=== PATIENT | female | born 1970 | race Asian ===

== ENCOUNTER 2020-03-09 09:25 | Outpatient (CLI) | payer BC ==
[~2020-03-09 09:25] MED LIST: Iopamidol-370 76% 500 ML 1 ML ONE
--- NOTE | 2020-03-09 10:50 | CT ---
CT neck soft tissues with contrast: 03/09/2020 HISTORY: 49-year-old female with "R 22.1, neck mass" FINDINGS: There is an approximately 2 x 1 x 1.5 cm moderately enhancing mass at the right nasopharyngeal mucosa l space, effacing the right fossa of Rosenmuller (lateral pharyngeal recess), and partially effacing the fat of the right parapharyngeal space. There is opacification of most of the right mastoid air cells. There is an approximately 2.7 x 1.8 x 1.6 cm solid, slightly heterogeneously enhancing tumor mass pos terior to the right mandibular angle, distorting the anterior superior portion of the right sternocleidomastoid muscle, and located to the right lateral aspect of the upper portion of the right internal jugular vein, which is extrinsically compressed and narrowed by this. It is located lateral to the right internal and external carotid arteries. This is probably a metastatic level 2A l ymph node. Located a short distance of approximately 1 cm posterior to this, there is a round 0.7 x 0.6 x 0.7 cm similarly enhancing nodule, probably metastatic level IIb lymph node. Slightly inferior and medial to the level 2A metastatic node, there is a 1.6 x 0.7 x 1.4 cm similarly enhancing irregularly-shaped mass consistent with another level 2A metastatic node. Caudal to this mass and cranial to this mass, no cervical lymphadenopathy is visualized. The thyroid gland, larynx, and trachea, demonstrate no definite pathology. The submandibular, parotid,, posterior cervical, and slip filler spaces, are unremarkable. 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 2) right mastoid effusion is evidence for occlusion of the right eustachian tube by the right nasopha ryngeal mass.
== END 2020-03-09 09:26 | disposition home or self-care (01) ==
LOC: BICCT 09:25
PROVIDERS: ATTEND Otolaryngology Plastic Surgery within the Head & Neck
DX: R22.1 Localized swelling, mass and lump, neck (principal); C11.9 Malignant neoplasm of nasopharynx, unspecified; C77.0 Secondary and unspecified malignant neoplasm of lymph nodes of head, face and neck; H74.8X1 Other specified disorders of right middle ear and mastoid; H68.101 Unspecified obstruction of Eustachian tube, right ear
CPT/HCPCS: 70491; Q9967

== ENCOUNTER 2020-03-23 13:31 | Outpatient (CLI) | payer BC ==
--- NOTE | 2020-03-23 14:29 | MRI ---
Exam: Brain MRI with and without contrast HISTORY: Posterior right oropharyngeal neoplasm. Evaluate for skull base. Patient has undergone tumor removal. COMPARISON: None Correlation: Postcontrast soft tissue neck CT 03/09/2020 FINDINGS: Gradient echo sequence: No hemorrhage Calvarium: Appropriate T1 marrow signal intensity Midline brain parenchyma: Unremarkable Cerebrum:No parenchymal mass, mass effect or midline shift. Brain volume is age-appropriate. Cortical amaya-white matter differentiation is preserved. No significant T2 or FLAIR white matter hyperintensities. Ventricles: No evidence of hydrocephalus. Sinuses and mastoid air cells: Mild mucosal thickening involving the bilateral ethmoid air cells and maxillary sinuses. There is asymmetric opacification of the right mastoid air cells. Diffusion: Central arterial flow is maintained. Absent restricted diffusion. Postcontrast images: No pathologic enhancement of the brain parenchyma. Additional findings: There appears be appropriate T1 marrow signal intensity involving the C1 and C2 vertebral bodies anteriorly. Visualized clivus has appropriate signal intensity. Postcontrast images do not demonstrate any abnormal signal intensity/enhancement of the anterior C1, C2 vertebral bodies or clivus. There is abnormal increased soft tissue signal intensity with enhancement involving the posterior right oral cavity/nasopharynx. There is narrowing of the right fossa of Foster burnham. There is appropriate signal intensity of the right longus coli muscle with respect of the contralateral side. There is grossly no abnormal enhancement involving the right glossopharyngeal ner ve. No abnormal signal intensity in the right glossopharyngeal foramen. There is symmetric signal intensity of the muscles of mastication and deep lobe of both parotid gland s. No obvious abnormal enhancing masses or lymphadenopathy in the right carotid space. IMPRESSION: Soft tissue mass involving the right nasopharynx and posterior right oral cavity, corresponding with known neoplasm. No evidence of involvement of the adjacent longus colli muscle or skull base/upper cervical spine.
== END 2020-03-23 13:32 | disposition home or self-care (01) ==
LOC: MRI 13:31
PROVIDERS: ATTEND Radiology Radiation Oncology
DX: C11.2 Malignant neoplasm of lateral wall of nasopharynx (principal); M79.89 Other specified soft tissue disorders
CPT/HCPCS: 70553

== ENCOUNTER 2020-03-24 12:45 | Outpatient (CLI) | payer BC ==
--- NOTE | 2020-03-24 13:39 | PET ---
EXAM: PET CT skull to mid thigh COMPARISON: CT neck 03/09/2020 HISTORY: Malignant neoplasm of the lateral wall of the nasopharynx with metastatic lymphadenopathy TECHNIQUE: A PET/CT was performed from the apex of the skull to the mid thigh after administration of 10.1 millicuries of F-18 FDG. Evaluation was performed on a [employer] workstation. FINDINGS: NECK: Hypermetabolic activity is seen bilaterally in the posterior nasopharynx with max SUV value of 6.6. There is hypermetabolic activity within the previously seen large right cervical lymph node with a max SUV value of 15.5. There is also hypermetabolic activity in the bilateral neck in zone 2. In the left neck this max SUV value is 3.2 and in the right neck separate from the previously described mass, there is hypermetabolic activity with max SUV value of 4.2. CHEST: There is a 1.7 cm right hilar mass that is hypermetabolic with max SUV value of 13.6. A calcif ied granuloma is seen in the right lower lobe. ABDOMEN/PELVIS: No areas of hypermetabolic activity SKELETON: No suspicious areas of hypermetabolic activity. Diffuse nonfocal hypermetabolic activity in the bones may represent marrow activation. CT images used for attenuation correction show no significant abnormality. IMPRESSION: 1. There is hypermetabolic activity in the posterior nasopharynx consistent with a primary nasopharyn geal carcinoma. There appears to be bilateral cervical metastatic disease 2. There is a hypermetabolic mass in the right hilar region of the lungs consistent with a metastases .
== END 2020-03-24 12:46 | disposition home or self-care (01) ==
LOC: PET 12:45
PROVIDERS: ATTEND Internal Medicine Hematology & Oncology
DX: C11.2 Malignant neoplasm of lateral wall of nasopharynx (principal); C77.9 Secondary and unspecified malignant neoplasm of lymph node, unspecified; R91.8 Other nonspecific abnormal finding of lung field
CPT/HCPCS: 78815; A9552

== ENCOUNTER 2020-03-25 06:43 | Outpatient (CLI) | payer BC, OTHER ==
[2020-03-25 15:56] LABS: BHCG - Serum Negative (NEGATIVE); Pregs Control Background? CLEAR/WHITE (CLR/WHITE); Pregs Control Bar Appear? YES (CONTROL BAR)
[2020-03-26 11:59] LABS: SARS-CoV-2 MS2 Positive; SARS-CoV-2 N Gene Negative; SARS-CoV-2 S Gene Negative; SARS-CoV-2 by NAA Not Detected (NotDetected); SARS-CoV-2 orf1ab Negative
== END 2020-03-25 06:44 | disposition home or self-care (01) ==
LOC: LABBT 06:43
PROVIDERS: ATTEND Otolaryngology Plastic Surgery within the Head & Neck
DX: Z01.812 Encounter for preprocedural laboratory examination (principal); Z20.828 Contact with and (suspected) exposure to other viral communicable diseases; J39.2 Other diseases of pharynx; R59.0 Localized enlarged lymph nodes
CPT/HCPCS: 84703; 85014; 87635; U0003

== ENCOUNTER 2020-03-29 07:10 | Day surgery (SDC) | payer BC ==
[2020-03-28 13:43] VITALS: BMI 22.3
[2020-03-29] MEDS ORDERED: Acetaminophen 500 MG TAB ONE (07:42)
[2020-03-29] MEDS ORDERED: Ketorolac Tromethamine 30 MG/ML VIAL ONE (07:42)
[2020-03-29 07:58] LABS: #Eosinphils 0.1 thou/uL (0.0-0.7); #Monocytes 0.5 thou/uL (0.11-0.59); #Neutrophils 3.6 thou/uL (1.40-6.50); %Basophils 0.3 % (0.0-1.0); %Lymphocytes 32.4 % (21.0-51.0); %Monocytes 7.7 % (0.0-10.0); %Neutrophils 58.6 % (42.0-75.0); Hemoglobin 13.4 g/dL (12.0-16.0); Mean Corpuscular HGB CONC 33.1 g/dL (32.0-36.0); Mean Corpuscular Hemoglobin 31.3 pg (27.0-31.0); Mean Corpuscular Volume 94.7 fL (78.0-98.0); Mean Platelet Volume 8.3 fL (7.4-10.4); Platelet Count 333 thou/uL (130-400); Red Blood Cell (RBC) Count 4.26 mill/uL (4.20-5.40); White Blood Cell (WBC) Count 6.2 thou/uL (4.8-10.8)
[2020-03-29 08:19] LABS: Anion Gap 12 mmol/L (10-20); BUN (Urea Nitrogen) 9 mg/dL (7.0-18.7); Calc. Creatinine Clearance 90 mL/min (70-130); Calcium 9.5 mg/dL (7.8-10.44); Carbon Dioxide 28 mmol/L (22-29); Chloride 105 mmol/L (98-107); Estimated GFR-MDRD 88; Glucose 98 mg/dL (70-105); Potassium 4.1 mmol/L (3.5-5.1); Sodium 141 mmol/L (136-145)
[2020-03-29] MEDS ORDERED: Bupivacaine/Epinephrine 0.25% 30 ML VIAL ONE (08:31)
[2020-03-29] MEDS ORDERED: Lidocaine 1% (PF) 30 ML VIAL ONE (08:31)
[2020-03-29] MEDS ORDERED: Ondansetron PF 4 MG/2 ML Vial ONE (08:45)
[2020-03-29] MEDS ORDERED: Dexamethasone 20 MG/5 ML VIAL ONE (08:45)
[2020-03-29] MEDS ORDERED: Lidocaine 1% PF 5 ML VIAL ONE (08:45)
[2020-03-29] MEDS ORDERED: PROPOFOL 200 MG/20 ML VIAL ONE (08:45)
[2020-03-29] MEDS ORDERED: Fentanyl 100 MCG/2 ML VIAL ONE (08:51)
--- NOTE | 2020-03-29 10:27 | RAD ---
EXAM: Single view of the chest HISTORY: Mediport placement COMPARISON: PET/CT 03/24/2020 FINDINGS: Single view of the chest shows a normal sized cardiomediastinal silhouette. There is a rig ht-sided Mediport with its tip in the superior vena cava. No pneumothorax is seen. There is no evidence of consolidation, mass, or pleural effusion. The right hilar mass seen on PET/CT cannot be d efinitely seen on this exam. No acute osseous abnormality. IMPRESSION: Status post Mediport placement without evidence of complication.
--- NOTE | 2020-03-29 11:11 | OP ---
DATE OF PROCEDURE: 03/29/2020 PREOPERATIVE DIAGNOSIS: Nasopharyngeal cancer. POSTOPERATIVE DIAGNOSIS: Nasopharyngeal cancer. PROCEDURE PERFORMED: Placement of right subclavian low-profile power compatible MediPort. ANESTHESIA: Total intravenous anesthesia with local using 1% lidocaine and 0.25% Marcaine with epinephrine. INDICATIONS: The patient is a 49-year-old khmer female, who presents with a head and neck cancer, for which chemotherapy is planned. MediPort is requested for this purpose. DESCRIPTION OF OPERATION: Informed consent was obtained. The patient was taken to the operating room where total intravenous anesthesia was obtained with the patient in supine position. Right periclavicular area was prepped with ChloraPrep and draped in sterile fashion. Local anesthetic was infiltrated and a large-gauge needle was passed under the clavicle in the subclavian vein. Guidewire was passed through the needle and fluoroscopically confirmed to enter the superior vena cava. Additional local anesthetic was infiltrated and transverse incision was created based on needle insertion site. A subcutaneous pocket was dissected inferiorly. Introducer dilator was passed over the guidewire under fluoroscopic guidance. The guidewire and dilator were removed, and the catheter was passed through the introducer. The tip of the catheter was positioned at the atriocaval junction and the catheter was trimmed to the appropriate length and secured to the locking hub of the MediPort. The port was then placed in the subcutaneous pocket where it was secured to the pectoral fascia with 2 interrupted sutures of 3-0 Prolene. The incision was then closed in layers with 3-0 and 4-0 Monocryl. Additional local anesthetic was infiltrated. The port was cannulated with a Meza needle and it aspirated blood freely and was flushed with heparinized saline. Dermabond was placed externally on the skin incision. There were no complications. Blood loss was negligible. The patient tolerated the procedure well and was taken to recovery room in stable condition. FINDINGS: I placed a low-profile port secondary to her body habitus. It was placed uneventfully into the right subclavian vein. Fluoroscopy was used throughout the procedure. Blood loss was negligible, and there were no complications. The patient tolerated the procedure well. Job ID: [id number]
== END 2020-03-29 11:15 | disposition home or self-care (01) ==
LOC: SDC 07:10
PROVIDERS: ATTEND Specialist
PROC: 02HV33Z Insertion of Infusion Device into Superior Vena Cava, Percutaneous Approach (ICD-10-PCS; principal; 2020-03-29)
DX: C11.9 Malignant neoplasm of nasopharynx, unspecified (principal)
CPT/HCPCS: 36415; 71045; 80048; 85025; C1788; J0690; J1100; J1642; J1885; J2001; J2405; J2704; J3010

== ENCOUNTER 2020-03-30 07:07 | Day surgery (SDC) | payer BC ==
[2020-03-30] MEDS ORDERED: Lidocaine 1% w/Epinephrine 1:100K 20 ML VIAL ONE (08:27)
[2020-03-30] MEDS ORDERED: AFRIN NASAL MIST 15 ML BOT ONE ×2 (08:27→10:03)
[2020-03-30] MEDS ORDERED: Midazolam HCl 2 mg/2 ml Vial ONE (09:42)
[2020-03-30] MEDS ORDERED: Fentanyl 100 MCG/2 ML VIAL ONE (09:42)
[2020-03-30] MEDS ORDERED: Hydrocodone-Acetamin 15 ML UDCUP ONE (12:08)
[2020-03-30] MEDS ORDERED: Lidocaine 1% PF 5 ML VIAL ONE (12:44)
[2020-03-30] MEDS ORDERED: Ondansetron PF 4 MG/2 ML Vial ONE (12:44)
[2020-03-30] MEDS ORDERED: EPHEDRINE 25 MG/5 ML SYRINGE ONE (12:44)
[2020-03-30] MEDS ORDERED: Dexamethasone 20 MG/5 ML VIAL ONE (12:44)
[2020-03-30] MEDS ORDERED: PROPOFOL 200 MG/20 ML VIAL ONE (12:44)
[2020-03-30] MEDS ORDERED: Levofloxacin 500 mg/D5W 100 ml Premix Bag ONE (12:50)
--- NOTE | 2020-03-31 06:59 | OP ---
DATE OF PROCEDURE: 03/30/2020 PREOPERATIVE DIAGNOSIS: Nasopharyngeal carcinoma POSTOPERATIVE DIAGNOSIS: Nasopharyngeal carcinoma. PROCEDURE PERFORMED: Exam under anesthesia, endoscopic nasopharyngeal biopsy. ESTIMATED BLOOD LOSS: 5 mL. COMPLICATIONS: None. ANESTHESIA: GETA. DESCRIPTION OF PROCEDURE: The patient was taken to the operating room and placed supine on the table. General endotracheal anesthesia was obtained by the Anesthesia staff. Tube was secured in the left lower lip. The patient was placed in a beach chair position. Following this, Afrin pledgets were placed in the nasal cavity, and the patient was prepped and draped for standard nasal procedure. Following this, a 0-degree endoscope was used to examine the nasal cavity and nasopharynx. The nasal cavity structures were all within normal limits. There was a submucosal lesion noted in the right nasopharynx, right eustachian tube area. The upbiting cup forceps was used to make multiple biopsies of this area and sent for frozen pathological touch-prep pathological analysis. They confirmed presence of malignant tissue, adequate enough for the diagnosis. The procedure was ended. The patient tolerated the procedure well. Job ID: [id number]
== END 2020-03-30 13:08 | disposition home or self-care (01) ==
LOC: SDC 07:07
PROVIDERS: ATTEND Otolaryngology Plastic Surgery within the Head & Neck
PROC: 09BN8ZX Excision of Nasopharynx, Via Natural or Artificial Opening Endoscopic, Diagnostic (ICD-10-PCS; principal; 2020-03-30)
DX: C11.9 Malignant neoplasm of nasopharynx, unspecified (principal); R59.0 Localized enlarged lymph nodes
CPT/HCPCS: 88305; 88331; 88341; 88342; J1100; J1956; J2250; J2405; J2704; J3010

== ENCOUNTER 2020-11-29 08:58 | Outpatient (CLI) | payer BC | END 2020-11-29 08:59 | disposition home or self-care (01) | LOC: PET 08:58 | PROVIDERS: ATTEND Internal Medicine Hematology & Oncology | DX: C11.2 Malignant neoplasm of lateral wall of nasopharynx (principal); R91.1 Solitary pulmonary nodule | CPT/HCPCS: 78815; A9552 ==

== ENCOUNTER 2021-03-01 09:46 | Outpatient (CLI) | payer BC ==
[~2021-03-01 09:46] MED LIST changes: +Iopamidol 370 76% 100 ML VIAL ONE; -Iopamidol-370 76% 500 ML 1 ML ONE
== END 2021-03-01 09:47 | disposition home or self-care (01) ==
LOC: BICCT 09:46
PROVIDERS: ATTEND Registered Nurse
DX: C11.2 Malignant neoplasm of lateral wall of nasopharynx (principal); R91.1 Solitary pulmonary nodule; R91.8 Other nonspecific abnormal finding of lung field
CPT/HCPCS: 71260

== ENCOUNTER 2021-03-14 10:22 | Outpatient (CLI) | payer BC | END 2021-03-14 10:23 | disposition home or self-care (01) | LOC: BICMAMMO 10:22 | PROVIDERS: ATTEND Registered Nurse | DX: Z12.31 Encounter for screening mammogram for malignant neoplasm of breast (principal) | CPT/HCPCS: 77063; 77067 ==

== ENCOUNTER 2021-05-16 09:24 | Outpatient (CLI) | payer BC | END 2021-05-16 09:25 | disposition home or self-care (01) | LOC: PET 09:24 | PROVIDERS: ATTEND Internal Medicine Hematology & Oncology | DX: C11.9 Malignant neoplasm of nasopharynx, unspecified (principal) | CPT/HCPCS: 78815; A9552 ==

== ENCOUNTER 2021-08-08 09:30 | Outpatient (CLI) | payer BC | END 2021-08-08 09:31 | disposition home or self-care (01) | LOC: PET 09:30 | PROVIDERS: ATTEND Internal Medicine Hematology & Oncology | DX: C11.2 Malignant neoplasm of lateral wall of nasopharynx (principal) | CPT/HCPCS: 78815; A9552 ==

== ENCOUNTER 2021-10-05 13:42 | Outpatient (CLI) | payer BC | END 2021-10-05 13:43 | disposition home or self-care (01) | LOC: BICRAD 13:42 | PROVIDERS: ATTEND Internal Medicine Hematology & Oncology | DX: R05.9 Cough, unspecified (principal) | CPT/HCPCS: 71046 ==

== ENCOUNTER 2021-12-26 10:15 | Outpatient (CLI) | payer BC | END 2021-12-26 10:16 | disposition home or self-care (01) | LOC: PET 10:15 | PROVIDERS: ATTEND Internal Medicine Hematology & Oncology | DX: C11.2 Malignant neoplasm of lateral wall of nasopharynx (principal) | CPT/HCPCS: 78815; A9552 ==

== ENCOUNTER 2022-04-05 09:44 | Outpatient (CLI) | payer BC | END 2022-04-05 09:45 | disposition home or self-care (01) | LOC: BICMAMMO 09:44 | PROVIDERS: ATTEND Registered Nurse | DX: Z12.31 Encounter for screening mammogram for malignant neoplasm of breast (principal) | CPT/HCPCS: 77063; 77067 ==

== ENCOUNTER 2022-09-04 11:00 | Outpatient (CLI) | payer BC | END 2022-09-04 11:01 | disposition home or self-care (01) | LOC: PET 11:00 | PROVIDERS: ATTEND Internal Medicine Hematology & Oncology | DX: C11.2 Malignant neoplasm of lateral wall of nasopharynx (principal) | CPT/HCPCS: 78815; A9552 ==

== ENCOUNTER 2022-10-11 10:20 | Outpatient (CLI) | payer BC | END 2022-10-11 10:21 | disposition home or self-care (01) | LOC: BICMRI 10:20 → MRI 10:21 | PROVIDERS: ATTEND Orthopaedic Surgery | DX: M25.511 Pain in right shoulder (principal); M19.011 Primary osteoarthritis, right shoulder; M75.101 Unspecified rotator cuff tear or rupture of right shoulder, not specified as traumatic ==

== ENCOUNTER → 2023-01-08 | Outpatient (CLI) | payer BC | LOC: PET 10:15 | PROVIDERS: ATTEND Internal Medicine Hematology & Oncology | DX: C11.2 Malignant neoplasm of lateral wall of nasopharynx (principal) | CPT/HCPCS: 78815; A9552 ==

== ENCOUNTER 2023-04-19 09:45 | Outpatient (CLI) | payer BC | END 2023-04-19 09:46 | disposition home or self-care (01) | LOC: BICMAMMO 09:45 | PROVIDERS: ATTEND Registered Nurse | DX: Z12.31 Encounter for screening mammogram for malignant neoplasm of breast (principal) | CPT/HCPCS: 77063; 77067 ==

== ENCOUNTER → 2023-05-14 | Outpatient (CLI) | payer BC | LOC: PET 11:45 | PROVIDERS: ATTEND Internal Medicine Hematology & Oncology | DX: C11.9 Malignant neoplasm of nasopharynx, unspecified (principal) | CPT/HCPCS: 78815; A9552 ==

== ENCOUNTER 2024-03-12 08:00 | Outpatient (CLI) | payer BC | END 2024-03-12 10:15 | disposition home or self-care (01) | LOC: PET 08:00 | PROVIDERS: ATTEND Internal Medicine Hematology & Oncology | DX: C11.2 Malignant neoplasm of lateral wall of nasopharynx (principal) | CPT/HCPCS: 78815; A9552 ==

== ENCOUNTER 2025-03-18 09:30 | Outpatient (CLI) | payer BC | END 2025-03-18 09:31 | disposition home or self-care (01) | LOC: PET 09:30 | PROVIDERS: ATTEND Internal Medicine Hematology & Oncology | DX: C11.2 Malignant neoplasm of lateral wall of nasopharynx (principal) | CPT/HCPCS: 78815; A9552 ==